=== PATIENT | female | born 1990 | race African-American/Black ===

== ENCOUNTER 2019-03-28 12:50 | Emergency (ER) | payer OTHER ==
[~2019-03-28] VITALS: Ht 165.1 cm; Wt 70.0 kg
[2019-03-28] MEDS ORDERED: FAMOTIDINE 20MG TABLET PO STA (14:17)
[2019-03-28] MEDS ORDERED: PREDNISONE 20MG TABLET PO ONE (14:30)
[2019-03-28] MEDS ORDERED: DIPHENHYDRAMINE 25MG CAPSULE PO ONE (14:30)
[2019-03-28 15:01] VITALS: BP 133/77
== END 2019-03-28 15:01 | disposition home or self-care (01) ==
LOC: ER 12:50
DX: L29.9 Pruritus, unspecified (principal)
CPT/HCPCS: 81025; 99284; J7512; Q0163

== ENCOUNTER → 2020-07-18 | Outpatient (CLI) | payer OTHER | END | disposition home or self-care (01) | LOC: PF 11:26 | PROVIDERS: ATTEND Internal Medicine Rheumatology | DX: Z00.6 Encounter for examination for normal comparison and control in clinical research program (principal) | CPT/HCPCS: 94010; 94727; 94729 ==